=== PATIENT | female | born 1985 | race Hispanic/Latino ===

== ENCOUNTER → 2020-04-16 | Outpatient (CLI) | payer OTHER ==
--- NOTE | 2020-04-16 12:35 | Diagnostic Imaging Report ---
TECHNIQUE: Magnetic resonance imaging of the left wrist was performed WITHOUT injected contrast. MRI was performed. HISTORY: Sprain of left wrist COMPARISON: None. FINDINGS: Evaluation is partially limited by motion artifacts. Bones: No acute fracture or osteonecrosis. No focal or infiltrative bone marrow replacing abnormalities. Joints: The carpal arcs are intact. No focal cartilage defect. The joint fluid is physiologic. Intrinsic ligaments: Mild increased signal within the volar band of the scapholunate ligament without discrete tear, consistent with mild sprain. Dorsal band and interosseous portions of the scapholunate ligament are intact and unremarkable. The lunotriquetral ligament is intact. Extrinsic ligaments: The volar and dorsal extrinsic ligaments appear intact. TFCC: The central and peripheral fibers of the triangular fibrocartilage are intact. The volar and dorsal radioulnar ligaments are intact. Tendons: Visualized portions of flexor and extensor tendons are intact. Extensor carpi ulnaris tendon is perched along the ulnar groove, favored to be secondary to wrist positioning given lack of intrinsic tendon signal changes or surrounding edema. Carpal tunnel: The carpal tunnel is unremarkable. The median nerve appears normal in size and signal. Other: None IMPRESSION: 1. Mild sprain along the volar band of the scapholunate ligament. 2. No additional acute osseous, ligament, or tendon injuries. Signed by: Sharad Siegel MD on 04/16/2020 12:31 PM
== END ==
LOC: MRI 08:53
PROVIDERS: ATTEND Specialist
DX: S63.92XA Sprain of unspecified part of left wrist and hand, initial encounter (principal)